=== PATIENT | female | born 1995 | race Caucasian/White ===

== ENCOUNTER → 2020-04-29 | Outpatient (CLI) | payer OTHER ==
--- NOTE | 2020-04-30 10:51 | US ---
EXAMINATION TYPE: Transabdominal DATE OF EXAM: 04/29/2020 3:56 PM COMPARISON: NONE CLINICAL HISTORY: Z36 confirm dates. EXAM PERFORMED: Transabdominal (TA) EXAM MEASUREMENTS: GESTATIONAL AGE / DATING Physician Established: (12 weeks/2 days) EDC: 11/09/2020 Dates by LMP: Unknown Dates by First Scan: This is 1st scan Dates by Current Scan for: (12 weeks/4 days) EDC: 11/07/2020 MATERNAL ANATOMY Uterus: 12.6 x 6.8 x 10.2cm, anteverted Right Ovary: 2.9 x 1.4 x 2.4cm Left Ovary: 3.0 x 1.8 x 1.8cm Post CDS / Adnexa: wnl Presence of free fluid: no Presence of corpus luteal cyst: no Presence of subchorionic bleed: no GESTATION / SURVEY CRL: 6.2cm (12 weeks/4 days) Yolk Sac (normal less than 6mm): not seen Heart Rate: 161 bpm Rhythm: Normal IUP: Viable IUP IMPRESSION: 1. Single intrauterine gestation estimated at 12 weeks 4 days gestation based on the crown-rump lengt h. Cardiac activity measures 161 bpm.
== END | disposition home or self-care (01) ==
LOC: RADUSWWP 15:35
PROVIDERS: ATTEND Obstetrics & Gynecology
DX: Z36.9 Encounter for antenatal screening, unspecified (principal); Z3A.12 12 weeks gestation of pregnancy
CPT/HCPCS: 76801

== ENCOUNTER 2020-11-06 06:05 | Inpatient (IN) | payer OTHER ==
--- NOTE | 2020-11-05 20:47 | P.HPOB ---
History of Present Illness H&P Date: 11/05/20 Chief Complaint: Induction of labor This is a 24 y.o. female, 2, para 1, with an estimated date of confinement of 11/09/2020, estimated gestational age of 39-4/7 weeks, who presents for induction of labor. She complains of lower pelvic cramping and pressure. course has been uncomplicated. labs: Hepatitis B surface antigen-neg RPR-NR Rubella-immune Blood type-O neg Antibody screen-neg HIV-NR Hemoglobin-12.9 Random glucose-81 US-normal anatomy 1 hr. GTT-141; 3 hr. GTT-wnl Rhogam given at 28 weeks GBS-positive OB Hx: . History of 1 vaginal delivery at term. Senior Occupational Therapist Hx: No hx STDs Social Hx: Single. Works part-time as chairman ceo. Review of Systems Constitutional: Denies chills, Denies fever Eyes: denies blurred vision, denies pain Ears, nose, mouth and throat: Denies headache, Denies sore throat Cardiovascular: Denies chest pain, Denies shortness of breath Respiratory: Denies cough Gastrointestinal: Reports abdominal pain (irreg. ctxs) Genitourinary: Reports pelvic pain, Reports Musculoskeletal: Reports low back pain Integumentary: Denies pruritus, Denies rash Neurological: Denies numbness, Denies weakness Psychiatric: Denies anxiety, Denies depression Past Medical History Past Medical History: No Reported History History of Any Multi-Drug Resistant Organisms: None Reported Past Surgical History: No Surgical Hx Reported Past Anesthesia/Blood Transfusion Reactions: No Reported Reaction Past Psychological History: No Psychological Hx Reported Smoking Status: Never smoker Past Alcohol Use History: None Reported Past Drug Use History: None Reported - Past Family History Father Family Medical History: Diabetes Mellitus, Hypertension Son(s) Family Medical History: Diabetes Mellitus (Type I) Additional Family Medical History / Comment(s): Autism Medications and Allergies Home Medications Medication Instructions Recorded Confirmed Type Pnv,Calcium 72/Iron/Folic Acid 1 each PO 11/05/20 History [ Plus Tablet] Allergies Allergy/AdvReac Type Severity Reaction Status Date / Time No Known Allergies Allergy Verified 11/05/14 15:21 Exam Osteopathic Statement: *. No significant issues noted on an osteopathic structural exam other than those noted in the History and Physical/Consult. HEENT: within normal limits Heart: regular rate and rhythm Lungs: clear to auscultation bilaterally Abdomen: , non-tender Cervix: 1.5 cm/70%/-2 heart tones: 140's by doppler Extremities: neg. Leia's Assessment and Plan (1) 39 weeks gestation of Status: Acute Code(s): Z3A.39 - 39 WEEKS GESTATION OF SNOMED Code(s): 17427751 (2) Group B Streptococcus carrier, +RV culture, currently Status: Acute Code(s): O99.820 - STREPTOCOCCUS B CARRIER STATE COMPLICATING SNOMED Code(s): 7606919405057 Plan: Admission for oxytocin induction of labor. Antibiotic prophylaxis for GBS. Ex pectant management. Epidural if desired.
[2020-11-06] MEDS ORDERED: OXYTOCIN 10 UNIT/ML 1 ML VIAL IM PRN (06:24)
[2020-11-06] MEDS ORDERED: CARBOPROST TROMETHAMINE 250 MCG/ML 1 ML AMP IM PRN (06:24)
[2020-11-06] MEDS ORDERED: LIDOCAINE 1% (10MG/ML) FOR IV START INTRADERMA PRN (06:24)
[2020-11-06] MEDS ORDERED: OXYTOCIN 30 UNITS/500 ML NS 30 UNIT in SALINE 1 500ML.BAG IV SCH ×2 (06:24→17:32)
[2020-11-06] MEDS ORDERED: LIDOCAINE 0.5% (PF) 5 MG/ML (50 ML SDV) SQ PRN (06:24)
[2020-11-06] MEDS ORDERED: AMPICILLIN 2,000 MG in SODIUM CHLORIDE 0.9% 100 ML IVPB STA (06:24)
[2020-11-06] MEDS ORDERED: METHYLERGONOVINE 0.2 MG/ML 1 ML AMP IM PRN (06:24)
[2020-11-06] MEDS ORDERED: TERBUTALINE 1 MG/ML VIAL SQ PRN (06:24)
[2020-11-06] MEDS: LACTATED RINGERS 1,000 ML IV SCH ×2 (06:28→11:32)
[2020-11-06 06:37] LABS: Basophils % (A) 0 %; Eosinophils # (A) 0.1 k/uL (0-0.7); Eosinophils % (A) 1 %; HCT 35.9 % (34.0-46.0); HGB 12.1 gm/dL (11.4-16.0); Lymphocytes # (A) 2.7 k/uL (1.0-4.8); Lymphocytes % (A) 27 %; MCH 29.8 pg (25.0-35.0); MCHC 33.8 g/dL (31.0-37.0); Mean Platelet Volume 7.6; Monocytes # (A) 0.5 k/uL (0-1.0); Monocytes % (A) 5 %; Neutrophils # (A) 6.7 k/uL (1.3-7.7); Neutrophils % (A) 66 %; Platelet Count 272 k/uL (150-450); RBC 4.08 m/uL (3.80-5.40); RDW 13.7 % (11.5-15.5); WBC 10.1 k/uL (3.8-10.6)
[2020-11-06] MEDS ORDERED: BUTORPHANOL 1 MG/ML 1 ML VIAL IV PRN (09:50)
[2020-11-06] MEDS: AMPICILLIN 1,000 MG in SODIUM CHLORIDE 0.9% 50 ML IVPB SCH ×2 (10:22→14:26)
[2020-11-06] MEDS ORDERED: fentaNYL (PF) 50 MCG/ML 5 ML AMP ONE (11:21)
[2020-11-06] MEDS ORDERED: ROPIVACAINE 5MG/ML 20ML VIAL ONE (11:21)
[2020-11-06] MEDS ORDERED: SODIUM CHLORIDE 0.9% 100 ML BAG ONE (11:21)
[2020-11-06 12:32] LABS: Glucose,Whole Blood 73 mg/dL (75-99)
--- NOTE | 2020-11-06 17:22 | P.PROBDLV ---
Vaginal Delivery Note - . Vaginal Delivery Note: The patient progressed to complete dilation after oxytocin induction of labor and artificial rupture membranes with clear fluid noted. She did receive 3 doses of antibiotic while in labor due to of group B streptococcus. She did receive epidural anesthesia. Once reaching complete dilation, she began pushing. Infant's head came to a crown. With one further push, the infant's head delivered across the perineum followed by the anterior shoulder. Nose and mouth were bulb suctioned. With one further push, the remainder the easily delivered and was placed on mother's abdomen. A viable female infant is noted with scores of 9 at 1 minute and 9 at 5 minutes and infant weight pending at this time. Placenta delivered shortly thereafter, intact, with a three-vessel cord. Uterus contracted well after oxytocin was given and uterine massage was carried out. Inspection of the perineum revealed no perineal lacerations. Estimated blood loss is approximate 50 mL. Both mother and are in stable condition.
[2020-11-06] MEDS ORDERED: ZOLPIDEM 5 MG TAB PO PRN (17:32)
[2020-11-06] MEDS ORDERED: ACETAMINOPHEN TAB 325 MG TAB PO PRN (17:32)
[2020-11-06] MEDS ORDERED: HYDROCORTISONE 2.5% RECTAL CREAM 30 GM TUBE RECTAL PRN (17:32)
[2020-11-06] MEDS ORDERED: diphenhydrAMINE 50 MG CAP PO PRN (17:32)
[2020-11-06] MEDS ORDERED: SIMETHICONE 80 MG CHEWABLE PO PRN (17:32)
[2020-11-06] MEDS ORDERED: LANOLIN CREAM 5 GM TUBE TOPICAL PRN (17:32)
[2020-11-06] MEDS ORDERED: BENZOCAINE/MENTHOL SPRAY 1 GM/SPRAY AEROSOL TOPICAL PRN (17:32)
[2020-11-06] MEDS ORDERED: diphenhydrAMINE 50 MG/ML 1 ML VIAL IVP PRN ×2 (17:32)
[2020-11-06] MEDS ORDERED: diphenhydrAMINE 25 MG CAP PO PRN (17:32)
[2020-11-06] MEDS: IBUPROFEN 600 MG TAB PO PRN (20:26)
[2020-11-07] MEDS: IBUPROFEN 600 MG TAB PO PRN ×2 (02:25→08:34)
[2020-11-07] MEDS: SENNOSIDES-DOCUSATE SODIUM 1 EACH TAB PO SCH ×2 (02:27→08:34)
[2020-11-07 06:28] LABS: Basophils % (A) 0 %; Eosinophils # (A) 0.1 k/uL (0-0.7); Eosinophils % (A) 1 %; HCT 30.2 % (34.0-46.0); HGB 10.4 gm/dL (11.4-16.0); Lymphocytes # (A) 3.1 k/uL (1.0-4.8); Lymphocytes % (A) 23 %; MCH 30.5 pg (25.0-35.0); MCHC 34.4 g/dL (31.0-37.0); MCV 88.7 fL (80.0-100.0); Mean Platelet Volume 7.3; Monocytes # (A) 0.7 k/uL (0-1.0); Monocytes % (A) 5 %; Neutrophils # (A) 9.1 k/uL (1.3-7.7); Neutrophils % (A) 69 %; Platelet Count 234 k/uL (150-450); RBC 3.41 m/uL (3.80-5.40); RDW 14.2 % (11.5-15.5); WBC 13.3 k/uL (3.8-10.6)
--- NOTE | 2020-11-07 08:25 | P.DS ---
Providers Date of admission: 11/06/20 06:05 Expected date of discharge: 11/07/20 Attending physician: Dayanna Fang Primary care physician: Stated None - Discharge Diagnosis(es) (1) 39 weeks gestation of Current Visit: No Status: Acute (2) Group B Streptococcus carrier, +RV culture, currently Current Visit: No Status: Acute Hospital Course: This is a 24 Fang female 2 para 1 at 39-4/7 weeks who presented for induction of labor. She delivered vaginally a viable female on 11/06/2020 with scores of 9 at 1 minute and 9 at 5 minutes and infant weight of 6 lbs. 13 oz. Her course has been uncomplicated. Her lochia is decreasing. Her pain is fairly well controlled open. She is breast- feeding. Vital signs are stable. Abdomen is soft with fundus firm and nontender. Extremity show negative Homans. Impression is status post vaginal delivery day #1. Plan is to discharge home today. Routine instructions are given. She will be given a prescription for ibuprofen and a breast pump. She is advised follow-up in the office in 6 weeks for a check. She is advised to call the office if she has any further questions or concerns prior to her appointment time. Procedures: Oxytocin induction of labor Spontaneous vaginal delivery of viable female on 11/06/2020 Patient Condition at Discharge: Stable Plan - Discharge Summary New Discharge Prescriptions: New Ibuprofen [Motrin] 600 mg PO Q6HR PRN #60 tab PRN Reason: Mild Pain (Scale 1 To 3) Continue Pnv,Calcium 72/Iron/Folic Acid [ Plus Tablet] 1 each PO DAILY Discharge Medication List Pnv,Calcium 72/Iron/Folic Acid [ Plus Tablet] 1 each PO DAILY 11/05/20 [History] Ibuprofen [Motrin] 600 mg PO Q6HR PRN #60 tab 11/07/20 [Rx] Follow up Appointment(s)/Referral(s): Dayanna Fang DO [Doctor of Osteopathic Medicine] - 12/17/20 11:30 am Activity/Diet/Wound Care/Special Instructions: Instructions 1. Do not begin any exercise program for 3 weeks. 2. Do not resume sexual relations for 3 weeks or longer if uncomfortable. 3. You may take tub baths or showers at any time. 4. You may use tampons if desired after 3 weeks. 5. Keep the area of episiotomy (stitches) clean and dry. 6. If you are not nursing, wear a good fitting, supportive bra during the day and limit fluid intake for at least 1 week to prevent breast engorgement. 7. Call the office, [phone], within the next week to make appointment for your 6 week checkup if it has not already been made. 8. Report any of the following occurrences to the doctor promptly: a. Heavy, excessive bleeding b. Chills, fever c. Burning or frequency of urination d. Pain or redness and breasts if nursing e. Increasing pain or swelling in episiotomy (stitches). In addition to the above instructions, the following additional should be followed: 1. No heavy lifting or straining (exercising) until after 6 week checkup. 2. Keep abdominal incision clean and dry: You may wear a dressing if more comfortable. 3. Make office appointment for 10 days after going home or as instructed by her doctor. Discharge Disposition: HOME SELF-CARE
[2020-11-07 09:54] VITALS: RESP 20
[2020-11-07 16:15] VITALS: BP 128/80; PULSE 82; TEMP 98.4
== END 2020-11-07 18:45 | disposition home or self-care (01) | DRG 807 ==
LOC: 4FBP 06:05
PROVIDERS: ADMIT Obstetrics & Gynecology; ATTEND Obstetrics & Gynecology
PROC: 10E0XZZ Delivery of Products of Conception, External Approach (ICD-10-PCS; principal; 2020-11-06)
PROC: 3E033VJ Introduction of Other Hormone into Peripheral Vein, Percutaneous Approach (ICD-10-PCS; 2020-11-06)
PROC: 10907ZC Drainage of Amniotic Fluid, Therapeutic from Products of Conception, Via Natural or Artificial Opening (ICD-10-PCS; 2020-11-06)
DX: O99.824 Streptococcus B carrier state complicating childbirth (principal); Z37.0 Single live birth; Z3A.39 39 weeks gestation of pregnancy
CPT/HCPCS: 85025; 86850; 86900; 86901